=== PATIENT | male | born 1960 | race American Indian/Alaskan Native ===

== ENCOUNTER 2018-05-03 07:19 | Day surgery (SDC) | payer MEDICARE, MEDICAID ==
[2018-05-03 08:04] VITALS: RESP 18; O2SAT 100
[2018-05-03 08:05] VITALS: BMI 21.1
[2018-05-03] MEDS ORDERED: Propofol 10 mg/ml Inj (20 ML) ONE (09:10)
[2018-05-03] MEDS ORDERED: Lactated Ringer's 1,000 ML IV ONE (09:10)
--- NOTE | 2018-05-03 09:12 | CP.SDSHP ---
Same Day Surgery H & P - History Proposed Procedure: COLONSCOPY Pre-Op Diagnosis: SEE NOTES - Previous Medical/Surgical History Cardiac: Hypertension, ASHD/CAD Endocrine/Metabolic: Other Misc: Other Pain: 2.Mild Pain Previous Surgical History: POLYPECTOMY - Allergies Allergies: Allergies No Known Allergies Allergy (Verified 05/03/18 08:05) - Physical Exam General Appearance: N Vital Signs: Vital Signs 05/03/18 07:52 Temperature 98 F Pulse Rate 86 Respiratory 18 Rate Blood Pressure 136/98 H O2 Sat by Pulse 100 Oximetry Mental Status: Alert & Oriented x3 Neuro: WNL Heart: Other Lungs: WNL GI: Other - {Optional Preform as Required} Breast: WNL Abdomen: Other Rectal: Other Integument: WNL : WNL Ortho: Other ENT: WNL - Impression Pt. Evaluated Today:Candidate for Anesthesia & Procedure: Yes - Date & Time Time: 09:12 Short Stay Discharge - Short Stay Discharge Admitting Diagnosis/Reason for Visit: COLON POLYP, GI BLEEDING Disposition: HOME/ ROUTINE
[2018-05-03] MEDS ORDERED: Belladonna-Phenobarbital PO ONE (09:50)
[2018-05-03 10:16] VITALS: TEMP 97.1
[2018-05-03 11:44] VITALS: BP 154/84; PULSE 68
== END 2018-05-03 11:00 | disposition home or self-care (01) ==
LOC: C.ENDO 07:19
PROVIDERS: ATTEND Specialist
DX: D12.5 Benign neoplasm of sigmoid colon (principal); Z86.010 Personal history of colon polyps; K92.2 Gastrointestinal hemorrhage, unspecified; K64.8 Other hemorrhoids
CPT/HCPCS: 45385; 88305; J2704; J7120

== ENCOUNTER 2018-05-08 07:45 | Day surgery (SDC) | payer MEDICARE, MEDICAID ==
[2018-05-08] MEDS ORDERED: Lidocaine Hydrochloride 5 ML INJ ONE (09:52)
[2018-05-08] MEDS ORDERED: Propofol 10 mg/ml Inj (20 ML) ONE (09:52)
[2018-05-08] MEDS ORDERED: Lactated Ringer's 500 ML IV ONE ×2 (10:00)
[2018-05-08] MEDS ORDERED: Belladonna-Phenobarbital PO STA (10:20)
--- NOTE | 2018-05-08 10:20 | CP.SDSHP ---
Same Day Surgery H & P - History Proposed Procedure: COLONSCOPY Pre-Op Diagnosis: SEE NOTES - Previous Medical/Surgical History Cardiac: Hypertension Endocrine/Metabolic: Other Neuro: Other Misc: Other Pain: 4.Moderate Pain - Allergies Allergies: Allergies No Known Allergies Allergy (Verified 05/03/18 08:05) - Physical Exam General Appearance: N Vital Signs: Vital Signs 05/08/18 05/08/18 05/08/18 08:43 08:51 10:02 Temperature 97.8 F 97.8 F Pulse Rate 86 86 93 H Respiratory 20 20 10 L Rate Blood Pressure 130/92 H 130/92 H 159/103 H O2 Sat by Pulse 100 100 100 Oximetry Mental Status: Alert & Oriented x3 Neuro: WNL Heart: Other Lungs: Other GI: Other - {Optional Preform as Required} Breast: WNL Abdomen: Other Rectal: Other Integument: WNL : WNL Ortho: Other ENT: WNL - Impression Pt. Evaluated Today:Candidate for Anesthesia & Procedure: Yes - Date & Time Time: 10:20 Short Stay Discharge - Short Stay Discharge Admitting Diagnosis/Reason for Visit: FECAL IMPACTION Disposition: HOME/ ROUTINE
[2018-05-08 15:42] VITALS: BP 150/100; PULSE 70; RESP 18; TEMP 96; O2SAT 99
== END 2018-05-08 11:15 | disposition home or self-care (01) ==
LOC: C.ENDO 07:45
PROVIDERS: ATTEND Specialist
DX: K56.41 Fecal impaction (principal); K64.8 Other hemorrhoids; I10 Essential (primary) hypertension; K52.9 Noninfective gastroenteritis and colitis, unspecified
CPT/HCPCS: 45380; 88305; J2704; J7120

== ENCOUNTER 2018-05-15 06:54 | Day surgery (SDC) | payer MEDICAID, MEDICARE ==
[2018-05-15] MEDS ORDERED: Lactated Ringer's 1,000 ML IV ONE ×2 (09:00)
--- NOTE | 2018-05-15 09:00 | CP.SDSHP ---
Same Day Surgery H & P - History Proposed Procedure: EGD Pre-Op Diagnosis: SEE NOTES - Previous Medical/Surgical History Cardiac: Hypertension, ASHD/CAD Endocrine/Metabolic: Other Neuro: Other Misc: Other Pain: 4.Moderate Pain - Allergies Allergies: Allergies No Known Allergies Allergy (Verified 05/03/18 08:05) - Physical Exam General Appearance: N Vital Signs: Vital Signs 05/15/18 07:07 Temperature 97.2 F L Pulse Rate 80 Respiratory 18 Rate Blood Pressure 150/99 H O2 Sat by Pulse 97 Oximetry Mental Status: Alert & Oriented x3 Neuro: Other Heart: Other Lungs: WNL GI: Other - {Optional Preform as Required} Abdomen: Other Rectal: Other Integument: WNL : WNL Ortho: Other ENT: WNL - Impression Pt. Evaluated Today:Candidate for Anesthesia & Procedure: Yes - Date & Time Time: 09:00 Short Stay Discharge - Short Stay Discharge Admitting Diagnosis/Reason for Visit: GI BLEEDING Disposition: HOME/ ROUTINE
[2018-05-15 09:36] VITALS: TEMP 97.9
[2018-05-15 09:39] VITALS: O2SAT 98
[2018-05-15] MEDS ORDERED: Belladonna-Phenobarbital PO ONE (09:45)
[2018-05-15 10:22] VITALS: BP 143/90; PULSE 88; RESP 13
== END 2018-05-15 10:15 | disposition home or self-care (01) ==
LOC: C.ENDO 06:54
PROVIDERS: ATTEND Specialist
DX: K29.50 Unspecified chronic gastritis without bleeding (principal); B96.81 Helicobacter pylori [H. pylori] as the cause of diseases classified elsewhere; K44.9 Diaphragmatic hernia without obstruction or gangrene; I25.10 Atherosclerotic heart disease of native coronary artery without angina pectoris; I10 Essential (primary) hypertension
CPT/HCPCS: 43239; 88305; J7120